=== PATIENT | male | born 1975 | race Caucasian/White ===

== ENCOUNTER 2016-06-23 19:28 | Day surgery (SDC) | payer OTHER, BC ==
[2016-06-23] MEDS ORDERED: FISH OIL 11000 MG/CA PO (20:10)
[2016-06-24] MEDS ORDERED: PERCOCET 5-3251 EACH PO (08:52)
[2016-06-24] MEDS ORDERED: IBUPROFEN25 GM PO (08:52)
== END 2016-06-24 11:09 ==
LOC: BURN 19:28
PROC: 0HRMXK4 Replacement of Right Foot Skin with Nonautologous Tissue Substitute, Partial Thickness, External Approach (ICD-10-PCS; principal; 2016-06-23)
DX: T25.021A Burn of unspecified degree of right foot, initial encounter (principal); T31.0 Burns involving less than 10% of body surface; Z79.899 Other long term (current) drug therapy; Z88.2 Allergy status to sulfonamides; X11.8XXA Contact with other hot tap-water, initial encounter
CPT/HCPCS: C5277; C5278; Q4136